=== PATIENT | male | born 1970 | race Caucasian/White ===

== ENCOUNTER 2017-05-30 02:37 | Emergency (ER) | payer SELFPAY ==
--- NOTE | 2017-05-30 04:31 | ED NURSING NOTES ---
Clinical Report - Nurses [facility] [address] [place] [address] 05/30/2017 2:41 Patient: HAILEY BOYER JR TRIAGE Triage time 02:40. Acuity: LEVEL 3. Chief Complaint: DIZZINESS and "FELT STRANGE" and TROUBLE CONCENTRATING (change in speech). Alert. No acute distress. GALLO COMA SCORE: Gallo Coma Scale: 15- eyes open spontaneously (4); best verbal response- oriented x 4 (5); best motor response- obeys commands (6). --02:52 Chandrika Ly R.N. 02:42 05/30/17. BP: 132/88. HR: 79. RR: 15. O2 saturation: 94% on room air. Temp: 97.5 F. Pain level now: 03/01. --02:52 Chandrika Ly R.N. Weight: 79.3 kg stated. Height/Length: 71 inches Per Patient. BMI: 24.4. --02:51 Chandrika Ly R.N. Medications None. --05:29 Chandrika Ly R.N. Allergies None. --05:29 Chandrika Ly R.N. History Arrived by private vehicle. Historian: patient. Accompanied by spouse. Primary physician (No PCP). This started seven weeks. ( Patient states "this has been going on for about seven weeks, but for the past few days I havent been able to sleep because I feel like I'm going to black out". Patient reports that he feels like he cant remember words as quickly as he usually did. Patient states "I have these bumps in the back of my neck that cause pain"). He has had vomiting. ( neck pain). PAST MEDICAL HX: Immunizations: up-to-date. SOCIAL HX: Heavy tobacco smoker- 1 pack per day. History of heavy drug use: marijuana. No alcohol use. FALL RISK ASSESSMENT: Fall risk assessment completed. No fall risk identified. NUTRITIONAL RISK ASSESSMENT: The nutritional risk assessment revealed no deficiencies. FUNCTIONAL ASSESSMENT: Functional assessment: no impairments noted. LEARNING NEEDS ASSESSMENT: The learning needs assessment revealed no barriers. SKIN INTEGRITY ASSESSMENT: Skin integrity risk assessment completed. No skin integrity risk identified. --02:52 Chandrika Ly R.N. Interventions ID band on patient. To treatment room. --02:52 Chandrika Ly R.N. PHYSICAL ASSESSMENT 02:54 05/30/17. Ambulatory to room. GENERAL / NEURO / PSYCH: Oriented X 4. Appears in no acute distress. Alert. HEENT: No facial asymmetry noted. Pupils equal, round and reactive to light. RESPIRATORY: Breath sounds within normal limits. Respirations not labored. CVS: Capillary refill less than 2 seconds. SKIN: Skin is warm and dry. --02:54 Chandrika Ly R.N. NURSING PROGRESS NOTES 02:54 05/30/17. Two patient identifiers checked. Call light placed in reach. Side rails up x 2. Bed placed in lowest position. Brakes of bed on. --02:54 Chandrika Ly R.N. 02:55 05/30/2017 Site #1 started via IV in the left wrist with an 20g angiocath; one attempt. Blood drawn: rainbow set. Labeled in the presence of the patient and sent to the lab. Saline lock flushed with 5 mL saline. --03:10 Chandrika Ly R.N. 03:00 05/30/2017 Started bag #1 1000 mL IV Fluids IV NS (Saline); bolus of 1000 mL wide open via site #1. Allergies verified and confirmed 5 rights. IV patency established. IV site checked: no pain, redness, or swelling. IV flushed thoroughly pre- and post-medication administration. Completed per protocol. --03:11 Chandrika Ly R.N. 03:00 05/30/2017 Zofran (Ondansetron HCl) IVP 4 mg given over 1 minute(s) via site #1. Allergies verified and confirmed 5 rights. IV patency established. IV site checked: no pain, redness, or swelling. IV flushed thoroughly pre- and post-medication administration. IVP given by RN. --03:11 Chandrika Ly R.N. 03:02 05/30/2017 Morphine IVP 4 mg given over 2 minute(s) via site #1. Allergies verified, confirmed 5 rights and sedative warning given to the patient. IV patency established. IV site checked: no pain, redness, or swelling. IV flushed thoroughly pre- and post-medication administration. IVP given by RN. --03:11 Chandrika Ly R.N. 03:41. Reassessment after medication administered. He is sleeping and has had no adverse reaction. RESPIRATORY: No respiratory distress. SKIN: Skin is warm and dry. --05:26 Chandrika Ly R.N. 03:40 05/30/17. HR: 71. RR: 10. O2 saturation: 95%. --05:28 Chandrika Ly R.N. 03:40 05/30/2017 Zofran IVP Response: no adverse reaction the patient feels better. 05/30/2017 03:40 HR: 71. RR: 10. O2 saturation: 95%. --05:31 Chandrika Ly R.N. 03:40 05/30/2017 IV Fluids IV NS Response: no adverse reaction the patient feels better. 05/30/2017 03:40 HR: 71. RR: 10. O2 saturation: 95%. --05:32 Chandrika Ly R.N. 03:40 05/30/2017 Morphine IVP Response: no adverse reaction the patient feels better. 05/30/2017 03:40 HR: 71. RR: 10. O2 saturation: 95%. --05:35 Chandrika Ly R.N. 04:07 05/30/2017 IV Fluids IV NS Discontinued: bag #1 discontinued. Total amount infused: 1000 mL. IV patency established. IV site checked: no pain, redness, or swelling. IV flushed thoroughly. --05:34 Chandrika Ly R.N. DISPOSITION / DISCHARGE 04:45 05/30/17. BP: 151/92. HR: 89. RR: 10. O2 saturation: 94%. Temp: deferred. Pain level now: 0/10. --05:03 Chandrika Ly R.N. 04:47. Condition at departure: improved. No learning barriers present. Discharge instructions provided and reviewed with the patient. Reviewed warnings. Reviewed medication(s). Treatments reviewed. Reviewed referrals. Patient verbalized understanding. Written instructions provided in Cym[employer]. The patient was discharged home and accompanied by spouse. He left the Emergency Department ambulatory and via private vehicle. Spouse driving. --05:25 Chandrika Ly R.N. 04:45 05/30/2017 Site #1 removed upon discharge. Manual pressure and bandaid applied. --05:29 Chandrika Ly R.N. Locked/Released at 05/30/2017 5:35 by Chandrika Ly R.N.
--- NOTE | 2017-05-30 04:31 | ED ORDER SUMMARY ---
..... Patient: HAILEY BOYER JR OrderSheet [facility] VisitID: [id number] [place] [address] 46y, M Registration Date/Time: 05/30/2017 ORDER SHEET Weight: 79.3 kg (stated) Allergies: None GENERAL ORDERS: CT Cervical Spine wo Cont Urgent (02:05/30/2017 Odilia Villalta) (Ack 2:54 CHagjanki ER Asset Accountant) (3:10 RMarsden R.N.) CT Head wo Cont Urgent (02:05/30/2017 Odilia Villalta) (Ack 2:54 Caesar ER Asset Accountant) (3:10 RMarsden R.N.) CBC w Diff Urgent (02:05/30/2017 Odilia Villalta) (Ack 2:54 Caesar ER Asset Accountant) (Collected 3:09 RMarsden R.N.) (3:20 RMarsden R.N.) CMP Urgent (02:05/30/2017 Odilia Villalta) (Ack 2:54 Caesar ER Asset Accountant) (Collected 3:09 RMarsden R.N.) (3:20 RMarsden R.N.) UA-Culture if indicated Urgent (02:05/30/2017 Odilia Villalta) (Ack 2:54 Jose Manuelerty ER Asset Accountant) (Cancelled: Other5:30 RMarsden R.N.) Lipase Urgent (02:05/30/2017 Odilia Villalta) (Ack 2:54 Jose Manuelerty ER Asset Accountant) (Collected 3:09 RMarsden R.N.) (5:30 RMarsden R.N.) Urine Drug Screen Urgent (02:05/30/2017 Odilia Villalta) (Ack 2:54 Caesar ER Asset Accountant) (Cancelled: Other5:30 RMarsden R.N.) MEDICATION ORDERS: IV FLUIDS: Zofran IV 4 mg (NOW) (02:52 05/30/2017 Odilia Villalta) (Ack 2:54 JQuivey R.N.) (3:11 RMarsden R.N.) Morphine IV 4 mg (HIGH ALERT MEDICATION, NOW) (02: 05/30/2017 Odilia Villalta) (Ack 2:54 Donna PachecoNDo) (3:11 Ember PachecoNDo) IV NS : initial bolus 1000 mL (1000 mL/hr), then none - for X1 (NOW) (02:55 05/30/2017 Odilia Villalta) (3:11 Ember R.N.) ORDER SHEET NOTES: [Electronically signed by Chandrika Ly R.N. (05:35 05/30/2017)] [Electronically signed by Vinayak Mccormack Dr. (06:33 06/01/2017)] [Electronically locked/signed by Chandrika Ly R.N. (05:35 05/30/2017)]
--- NOTE | 2017-05-30 04:31 | ED ORDER SUMMARY ---
..... Patient: HAILEY BOYER JR OrderSheet [facility] VisitID: [id number] [place] [address] 46y, M Registration Date/Time: 05/30/2017 ORDER SHEET Weight: 79.3 kg (stated) Allergies: None GENERAL ORDERS: CT Cervical Spine wo Cont Urgent (02:05/30/2017 Odilia Villalta) (Ack 2:54 CHagjanki ER Line Assembler) (3:10 RMarsden R.N.) CT Head wo Cont Urgent (02:05/30/2017 Odilia Villalta) (Ack 2:54 Caesar ER Line Assembler) (3:10 RMarsden R.N.) CBC w Diff Urgent (02:05/30/2017 Odilia Villalta) (Ack 2:54 Caesar ER Line Assembler) (Collected 3:09 RMarsden R.N.) (3:20 RMarsden R.N.) CMP Urgent (02:05/30/2017 Odilia Villalta) (Ack 2:54 Caesar ER Line Assembler) (Collected 3:09 RMarsden R.N.) (3:20 RMarsden R.N.) UA-Culture if indicated Urgent (02:05/30/2017 Odilia Villalta) (Ack 2:54 Jose Manuelerty ER Line Assembler) (Cancelled: Other5:30 RMarsden R.N.) Lipase Urgent (02:05/30/2017 Odilia Villalta) (Ack 2:54 Jose Manuelerty ER Line Assembler) (Collected 3:09 RMarsden R.N.) (5:30 RMarsden R.N.) Urine Drug Screen Urgent (02:05/30/2017 Odilia Villalta) (Ack 2:54 Caesar ER Line Assembler) (Cancelled: Other5:30 RMarsden R.N.) MEDICATION ORDERS: IV FLUIDS: Zofran IV 4 mg (NOW) (02:52 05/30/2017 Odilia Villalta) (Ack 2:54 JQuivey R.N.) (3:11 RMarsden R.N.) Morphine IV 4 mg (HIGH ALERT MEDICATION, NOW) (02: 05/30/2017 Odilia Villalta) (Ack 2:54 Donna PachecoNDo) (3:11 Ember PachecoNDo) IV NS : initial bolus 1000 mL (1000 mL/hr), then none - for X1 (NOW) (02:55 05/30/2017 Odilia Villalta) (3:11 Ember R.N.) ORDER SHEET NOTES: [Electronically signed by Chandrika Ly R.N. (05:35 05/30/2017)] [Electronically signed by Vinayak Mccormack Dr. (06:33 06/01/2017)] [Electronically locked/signed by Chandrika Ly R.N. (05:35 05/30/2017)]
--- NOTE | 2017-05-30 04:31 | ED CLINICAL REPORT ---
Clinical Report - Physicians/Mid Levels [facility] [address] [place] [address] 05/30/2017 2:41 Patient: HAILEY BOYER JR Time Seen: 0250; initial patient contact. Arrived- By private vehicle. Historian- patient. HISTORY OF PRESENT ILLNESS Chief Complaint: NECK PAIN. It is described as being severe and radiating (back of the head). The quality is noted to be ("stabbing"). Onset- over a month and it is still present and worsening. It was gradual in onset and has been constant but is not gone now. Modifying factors. (worse with movement. better with massage.). No bladder dysfunction, bowel dysfunction, sensory loss or motor loss. Additional history - No fever. States he is having n/v with the pain. Patient notes the possibility of an injury. Patient denies a recent injury. Mechanism of injury- (wrestling for fun at work). Occurred at work. Patient denies injury to the head or chest. No other injury. Similar symptoms previously: None. Recent medical care: Not recently seen/assessed. REVIEW OF SYSTEMS No fever, chills, difficulty breathing, chest pain or skin rash. No black stools or bloody stools. He has had nausea and vomiting. All systems otherwise negative, except as recorded above. PAST HISTORY See nurses notes. Medications: None. Allergies: None. SOCIAL HISTORY Smoker- current status unknown. History of drug use: marijuana. Is a recovering addict. No alcohol use. No recent travel. Is a local resident. ADDITIONAL NOTES The nursing notes have been reviewed. PHYSICAL EXAM Vital Signs: 05/30/2017 02:42 BP: 132/88. HR: 79. RR: 15. O2 saturation: 94%. Temp: 97.5 F. Pain level now: 4/10. Oxygen saturation normal. Appearance: Alert. Patient in mild distress. (nontoxic appearance. blade. Cooperative.). HEENT: Normal external inspection. Eyes: Pupils equal, round and reactive to light. ENT: Ears normal. Pharynx normal. (normal-appearing retinal vasculature. No papilledema.). Neck: Normal inspection. No meningeal signs. (Mild paraspinal muscle tenderness. No crepitus. No midline tenderness. No step-offs. No bony abnormalities.). CVS: Normal heart rate and rhythm. Heart sounds normal. Pulses normal. Respiratory: No respiratory distress. Breath sounds normal. Chest nontender. No rales, rhonchi or wheezes. Abdomen: Normal inspection. Soft and nontender. Bowel sounds normal. Back: Normal inspection. No tenderness. Painless ROM. No vertebral point tenderness. Skin: Skin warm and dry. Normal skin color. No rash. Normal skin turgor. Extremities: Extremities exhibit normal ROM. Extremities nontender. Neuro: Oriented X 3. Mood/affect normal. No motor deficit. No sensory deficit. LABS, X-RAYS, AND EKG CT C-Spine: (PROCEDURE: CT CERVICAL SPINE W/O CONTRAST INDICATION: PAIN TECHNIQUE: Noncontrast axial images with sagittal and coronal reformations. Report provided by Angelina Thomas MD ([facility]). COMPARISON: None. FINDINGS: There is straightening of cervical lordosis. C1-2: Mild degenerative changes. C2-3: Normal appearance. C3-4: Normal appearance. C4-5: Normal appearance. C5-6: Moderately chronically bulging disc with lateral osteophytes results in mild narrowing of the central canal with mild to moderate narrowing of the neural foramina. C6-7: Moderately chronically bulging disc with lateral osteophytes results in mild narrowing of central canal and moderate narrowing of the neural foramina. C7-T1: Normal appearance. No evidence of acute process or fracture. There are mild emphysematous changes of the upper lungs. IMPRESSION: 1. Mild to moderate degenerative changes of the lower cervical spine. 2. Straightening of the cervical lordosis compatible spasm or degenerative changes. 3. Mild emphysematous changes of the upper lungs. 4. No evidence of acute process.). The study was independently viewed by me and interpreted by the radiologist. The study was discussed with the radiologist (via pacs and phone). CT Head: (PROCEDURE: CT HEAD WITHOUT CONTRAST INDICATION: Dizziness. Headache. TECHNIQUE: Noncontrast axial images with sagittal and coronal reformations. Preliminary report provided by Angelina Thomas MD ([facility]). COMPARISON: None. FINDINGS: Brain and ventricles are normal. No evidence of an acute process or hemorrhage. Sinuses and mastoids are normal. IMPRESSION: 1. Negative head CT.). The study was independently viewed by me and interpreted by the radiologist. The study was discussed with the radiologist (via pacs and phone). Laboratory Tests: CBC w Diff: (STACEY: 05/30/2017 02:50) ( WygRcvd 05/30/2017 03:02) Final results Test Result Flag Units (Reference) WHITE BLOOD COUNT 13.0 H K/uL (4.5-11.5) RED BLOOD COUNT 4.83 M/uL (4.50-5.90) HEMOGLOBIN 14.4 gm/dL (13.5-17.5) HEMATOCRIT 42.9 % (41.0-53.0) MEAN CELL VOLUME 89 fL (80-100) MEAN CORPUSCULAR HGB 30 pg (26-34) MEAN CORPUSCULAR HGB CONC 34 g/dL (31-37) RED CELL DISTRIBUTION WIDTH 13.3 % (11.6-14.8) PLATELET COUNT 344 K/uL (150-400) NEUTROPHIL % 81.7 H % (50-75) LYMPH % 11.4 L % (25-40) MONO % 4.9 % (3-14) EOSINOPHIL % 1.5 % (0-4) BASOPHIL % 0.5 % (0-2) CMP: (STACEY: 05/30/2017 02:50) ( WygRcvd 05/30/2017 03:14) Final results Test Result Flag Units (Reference) GLUCOSE 98 mg/dL (70-110) BUN 14 mg/dL (7-18) CREATININE 0.9 mg/dL (0.6-1.3) Estimated GFR >60 mL/min Estimated GFR- >60 mL/min Note: Persistent reduction over 3 months in eGFR<60 mL/min/1.73 m2 defines CKD. Patients with eGFR values>=60 mL/min/1.73 m2 may also have CKD if evidence ofpersistent proteinuria. Additional information may be foundat www.kidney.org. SODIUM 142 mmol/L (136-145) POTASSIUM 3.8 mmol/L (3.5-5.1) CHLORIDE 102 mmol/L (98-107) CARBON DIOXIDE 29 mmol/L (21-32) CALCIUM 9.5 mg/dL (8.5-10.1) TOTAL PROTEIN 7.6 g/dL (6.4-8.2) ALBUMIN 4.4 g/dL (3.3-5.0) BILIRUBIN, TOTAL 0.5 mg/dL (0.0-1.0) ALKALINE PHOSPHATASE 66 U/L (46-116) AST (SGOT) 21 U/L (15-37) ALT (SGPT) 22 U/L (12-78) LIPASE 97 U/L (73-393) . PROGRESS AND PROCEDURES Course of Care: The patient is a 46-year-old male presenting for evaluation of headache and mental status changes. Symptoms have been ongoing for the past month. No concern at this time for acute CVA. Patient is otherwise outside of the window. Would be concerned for atypical migraine presentation versus atypical headache presentation versus tension headache. No signs of meningitis at this time. Patient does have nausea and vomiting associated with his headache and neck pain. Concern for space-occupying lesion. CT scan of the head and neck up and ordered for evaluation of the patient's discomfort. No signs of increased intracranial pressure on examination. Patient is agreeable to the treatment plan. The patient's workup was remarkable for the findings above. No acute findings noted on patient's CT scan of the head. Patient with degenerative disc disease noted on those findings. Had a discussion with the patient in regards to his workup here in the emergency department. No acute findings also noted on patient's laboratory studies. Discussed with patient his diagnosis here in the emergency department including home care, follow-up, and return precautions. All questions have been answered. The patient expressed understanding of these instructions and was agreeable to them. Patient's repeat examination is significantly improved. Patient continues to be neurovascularly intact. Disposition: Discharged. Condition: good. CLINICAL IMPRESSION Acute neck pain associated with cervical strain and DJD of the lower cervical spine. 05/30/2017 02:42 BP: 132/88. HR: 79. RR: 15. O2 saturation: 94%. Temp: 97.5 F. Pain level now: 4/10. Moderate nausea with vomiting (acute). Acute headache. Oxygen saturation normal. INSTRUCTIONS Warnings: SEDATIVE MEDICATION: You were given sedative medication during your visit. Do not drive or operate dangerous machinery. CONTROLLED SUBSTANCE WARNINGS. GENERAL WARNINGS: Return or contact your physician immediately if your condition worsens or changes unexpectedly, if not improving as expected, or if other problems arise. SPECIFICALLY, return if you develop weakness, numbness, tingling, pain or incontinence. fever or other concerns. Prescription Medications: Flexeril 10 mg: take 1 orally every 8 hours as needed for muscle spasm or pain. Dispense twenty (20). No refills. Substitution is permissible. Percocet 5 mg/325 mg: take 1 tablet orally every 6 hours as needed for pain. Dispense twelve (12). No refill. Substitution is permissible. Follow-up: Return to the emergency department as needed. Follow up with your doctor in three days. Reason for referral: recheck today's concerns. Summary of care provided to patient via paper. Screening today revealed the patient's blood pressure to be in the normal range. The patient should follow up with a primary care provider for blood pressure management. Understanding of the discharge instructions verbalized by patient. (Electronically signed by Vinayak Mccormack Dr. 06/01/2017 6:33)
--- NOTE | 2017-05-30 06:48 | DIAGNOSTIC IMAGING REPORT ---
PROCEDURE: CT CERVICAL SPINE W/O CONTRAST INDICATION: PAIN TECHNIQUE: Noncontrast axial images with sagittal and coronal reformations. Report provided by Angelina Thomas MD ([facility]). COMPARISON: None. FINDINGS: There is straightening of cervical lordosis. C1-2: Mild degenerative changes. C2-3: Normal appearance. C3-4: Normal appearance. C4-5: Normal appearance. C5-6: Moderately chronically bulging disc with lateral osteophytes results in mild narrowing of the central canal with mild to moderate narrowing of the neural foramina. C6-7: Moderately chronically bulging disc with lateral osteophytes results in mild narrowing of central canal and moderate narrowing of the neural foramina. C7-T1: Normal appearance. No evidence of acute process or fracture. There are mild emphysematous changes of the upper lungs. IMPRESSION: 1. Mild to moderate degenerative changes of the lower cervical spine. 2. Straightening of the cervical lordosis compatible spasm or degenerative changes. 3. Mild emphysematous changes of the upper lungs. 4. No evidence of acute process. All CT scans at this facility use dose modulation, iterative reconstruction, and/or weight-based dosing when appropriate to reduce radiation dose to as low as reasonably achievable.
--- NOTE | 2017-05-30 06:51 | DIAGNOSTIC IMAGING REPORT ---
PROCEDURE: CT HEAD WITHOUT CONTRAST INDICATION: Dizziness. Headache. TECHNIQUE: Noncontrast axial images with sagittal and coronal reformations. Preliminary report provided by Angelina Thomas MD (). COMPARISON: None. FINDINGS: Brain and ventricles are normal. No evidence of an acute process or hemorrhage. Sinuses and mastoids are normal. IMPRESSION: 1. Negative head CT. 2. Preliminary report provided to Dr. Vinayak Mccormack ([address] scans at this facility use dose modulation, iterative reconstruction, and/or weight-based dosing when appropriate to reduce radiation dose to as low as reasonably achievable.
--- NOTE | 2017-06-01 06:33 | ED DISCHARGE INSTRUCTIONS ---
Patient: HAILEY BOYER JR General Instructions [facility] VisitID: [id number] [place] [address] 46y, M Registration Date/Time: 05/30/2017 Acute neck pain associated with cervical strain and DJD of the lower cervical spine. 05/30/2017 02:42 BP: 132/88. HR: 79. RR: 15. O2 saturation: 94%. Temp: 97.5 F. Pain level now: 410. Moderate nausea with vomiting (acute). Acute headache. Oxygen saturation normal. INSTRUCTIONS Warnings: SEDATIVE MEDICATION: You were given sedative medication during your visit. Do not drive or operate dangerous machinery. CONTROLLED SUBSTANCE WARNINGS. GENERAL WARNINGS: Return or contact your physician immediately if your condition worsens or changes unexpectedly, if not improving as expected, or if other problems arise. SPECIFICALLY, return if you develop weakness, numbness, tingling, pain or incontinence. fever or other concerns. Prescription Medications: Flexeril 10 mg: take 1 orally every 8 hours as needed for muscle spasm or pain. Dispense twenty (20). No refills. Substitution is permissible. Percocet 5 mg/325 mg: take 1 tablet orally every 6 hours as needed for pain. Dispense twelve (12). No refill. Substitution is permissible. Follow-up: Return to the emergency department as needed. Follow up with your doctor in three days. Reason for referral: recheck today's concerns. Summary of care provided to patient via paper. Screening today revealed the patient's blood pressure to be in the normal range. The patient should follow up with a primary care provider for blood pressure management. Understanding of the discharge instructions verbalized by patient. ADDITIONAL INFORMATION Neck Sprain Or Strain A sudden force that causes turning or bending of the neck (such as in a car accident) can stretch or tear muscles (strain) and ligaments (sprain) and cause neck pain. Sometimes neck pain occurs after a simple awkward movement. In either case, muscle spasm is commonly present and contributes to the pain. Unless you had a forceful physical injury (for example, a car accident or fall), X-rays are usually not ordered for the initial evaluation of neck pain. If pain continues and dose not respond to medical treatment, X-rays and other tests may be performed at a later time. Home care The following guidelines will help you care for your injury at home: You may feel more soreness and spasm the first few days after the injury. Reduce your activity level until symptoms begin to improve. When lying down, use a comfortable pillow that supports the head and keeps the spine in a neutral position. The position of the head should not be tilted forward or backward. Use ice packs (ice in a plastic bag, wrapped in a towel) to treat acute pain. Apply for 20 minutes every 24 hours during the first two days. Then, begin local heat (hot shower, hot bath or heating pad) andmassageto reduce muscle spasm. Some patients feel best alternating hot and cold treatments, or just staying with one method only. Do what feels the best to you and gives the most relief. You may use acetaminophen or ibuprofen to control pain, unless another pain medicine was prescribed.If you have chronic liver or kidney disease or ever had a stomach ulcer or GI bleeding, talk with your doctor before using these medicines. Follow-up care Follow up with your physician or this facility if your symptoms do not show signs of improvement. Physical therapy may be needed. If you had X-rays today, they didnt show any broken bones, breaks, or fractures. Sometimes fractures dont show up on the first X-ray. Bruises and sprains can sometimes hurt as much as a fracture. These injuries can take time to heal completely. If your symptoms dont improve or they get worse, talk with your doctor. You may need a repeat X-ray. When to seek medical care Get prompt medical attention if any of the following occur: Pain becomes worse or spreads into your arms Weakness or numbness in one or both arms Headache [Unspecified] The cause of your headache today is not clear, but it does not appear to be the sign of any serious illness. Under stress, some people tense the muscles of their shoulder, neck and scalp without knowing it. If this condition lasts long enough, a TENSION HEADACHE can occur. A MIGRAINE HEADACHE is caused by changes in blood flow to the brain. A migraine attack may be triggered by emotional stress, hormone changes during the menstrual cycle, oral contraceptives, alcohol use, certain foods containing tyramine, eye strain, weather changes, missing meals, lack of sleep or oversleeping. Other causes of headache include a viral illness with high fever, head injury with concussion, sinus, ear or throat infection, dental pain and TMJ (jaw joint) pain. More serious but less common causes of headache include stroke, brain hemorrhage, brain tumor, meningitis and encephalitis. Home Care: If you were given pain medicine for this headache, do not drive yourself home. Arrange for a ride, instead. When you get home, try to sleep. You should feel much better when you wake up. Apply heat to the back of your neck to relieve neck muscle spasm. Migraine headaches may respond best to an ice pack on the forehead or at the base of the skull. If you are having nausea or vomiting, follow a light diet until your headache is relieved. If you have a migraine type headache, use sunglasses when in the daylight or around bright indoor lighting until symptoms improve. Bright glaring light can worsen this kind of headache. Follow Up with your doctor if the headache is not better within the next 24 hours. If you have frequent headaches you should discuss a treatment plan with your primary care doctor. By being aware of the earliest signs of headache, and starting treatment right away, you may be able to stop the pain yourself. Get Prompt Medical Attention if any of the following occur: Worsening of your head pain or no improvement within 24 hours Repeated vomiting (unable to keep liquids down) Fever of 100.4F (38C) or higher, or as directed by your healthcare provider Stiff neck Extreme drowsiness, confusion or fainting Dizziness, vertigo (dizziness with spinning sensation) Weakness of an arm or leg or one side of the face Difficulty with speech or vision Cyclobenzaprine Hydrochloride Oral tablet What is this medicine? CYCLOBENZAPRINE (rosalind mcgraw) is a muscle relaxer. It is used to treat muscle pain, spasms, and stiffness. How should I use this medicine? Take this medicine by mouth with a glass of water. Follow the directions on the prescription label. If this medicine upsets your stomach, take it with food or milk. Take your medicine at regular intervals. Do not take it more often than directed. Talk to your building insulation installer regarding the use of this medicine in children. Special care may be needed. What side effects may I notice from receiving this medicine? Side effects that you should report to your doctor or health career services assistant as soon as possible: allergic reactions like skin rash, itching or hives, swelling of the face, lips, or tongue chest pain fast heartbeat hallucinations seizures vomiting Side effects that usually do not require medical attention (report to your doctor or health career services assistant if they continue or are bothersome): headache What may interact with this medicine? Do not take this medicine with any of the following medications: cisapride droperidol flecainide grepafloxacin halofantrine levomethadyl MAOIs like Carbex, Eldepryl, Marplan, Nardil, and Parnate nilotinib pimozide probucol sertindole This medicine may also interact with the following medications: abarelix alcohol contrast dyes dolasetron guanethidine medicines for cancer medicines for depression, anxiety, or psychotic disturbances medicines to treat an irregular heartbeat medicines used for sleep or numbness during surgery or procedure methadone octreotide ondansetron palonosetron phenothiazines like chlorpromazine, mesoridazine, prochlorperazine, thioridazine some medicines for infection like alfuzosin, chloroquine, clarithromycin, levofloxacin, mefloquine, pentamidine, troleandomycin tramadol vardenafil What if I miss a dose? If you miss a dose, take it as soon as you can. If it is almost time for your next dose, take only that dose. Do not take double or extra doses. Where should I keep my medicine? Keep out of the reach of children. Store at room temperature between 15 and 30 degrees C (59 and 86 degrees F). Keep container tightly closed. Throw away any unused medicine after the expiration date. What should I tell my health care provider before I take this medicine? They need to know if you have any of these conditions: heart disease, irregular heartbeat, or previous heart attack liver disease thyroid problem an unusual or allergic reaction to cyclobenzaprine, tricyclic antidepressants, lactose, other medicines, foods, dyes, or preservatives or trying to get breast-feeding What should I watch for while using this medicine? Check with your doctor or health career services assistant if your condition does not improve within 1 to 3 weeks. You may get drowsy or dizzy when you first start taking the medicine or change doses. Do not drive, use machinery, or do anything that may be dangerous until you know how the medicine affects you. Stand or sit up slowly. Your mouth may get dry. Drinking water, chewing sugarless gum, or sucking on hard candy may help. Oxycodone Hydrochloride, Acetaminophen Oral tablet What is this medicine? ACETAMINOPHEN; OXYCODONE (a set a GRAYSON fortino fen; ox joan FORD done) is a pain reliever. It is used to treat mild to moderate pain. How should I use this medicine? Take this medicine by mouth with a full glass of water. Follow the directions on the prescription label. Take your medicine at regular intervals. Do not take your medicine more often than directed. Talk to your building insulation installer regarding the use of this medicine in children. Special care may be needed. Patients over 65 years old may have a stronger reaction and need a smaller dose. What side effects may I notice from receiving this medicine? Side effects that you should report to your doctor or health career services assistant as soon as possible: allergic reactions like skin rash, itching or hives, swelling of the face, lips, or tongue breathing difficulties, wheezing confusion light headedness or fainting spells severe stomach pain yellowing of the skin or the whites of the eyes Side effects that usually do not require medical attention (report to your doctor or health career services assistant if they continue or are bothersome): dizziness drowsiness nausea vomiting What may interact with this medicine? alcohol antihistamines barbiturates like amobarbital, butalbital, butabarbital, methohexital, pentobarbital, phenobarbital, thiopental, and secobarbital benztropine drugs for bladder problems like solifenacin, trospium, oxybutynin, tolterodine, hyoscyamine, and methscopolamine drugs for breathing problems like ipratropium and tiotropium drugs for certain stomach or intestine problems like propantheline, homatropine methylbromide, glycopyrrolate, atropine, belladonna, and dicyclomine general anesthetics like etomidate, ketamine, nitrous oxide, propofol, desflurane, enflurane, halothane, isoflurane, and sevoflurane medicines for depression, anxiety, or psychotic disturbances medicines for sleep muscle relaxants naltrexone narcotic medicines (opiates) for pain phenothiazines like perphenazine, thioridazine, chlorpromazine, mesoridazine, fluphenazine, prochlorperazine, promazine, and trifluoperazine scopolamine tramadol trihexyphenidyl What if I miss a dose? If you miss a dose, take it as soon as you can. If it is almost time for your next dose, take only that dose. Do not take double or extra doses. Where should I keep my medicine? Keep out of the reach of children. This medicine can be abused. Keep your medicine in a safe place to protect it from theft. Do not share this medicine with anyone. Selling or giving away this medicine is dangerous and against the law. Store at room temperature between 20 and 25 degrees C (68 and 77 degrees F). Keep container tightly closed. Protect from light. This medicine may cause accidental overdose and if it is taken by other adults, children, or pets. Flush any unused medicine down the toilet to reduce the chance of harm. Do not use the medicine after the expiration date. What should I tell my health care provider before I take this medicine? They need to know if you have any of these conditions: brain tumor Crohn's disease, inflammatory bowel disease, or ulcerative colitis drink more than 3 alcohol containing drinks per day drug abuse or addiction head injury heart or circulation problems kidney disease or problems going to the bathroom liver disease lung disease, asthma, or breathing problems an unusual or allergic reaction to acetaminophen, oxycodone, other opioid analgesics, other medicines, foods, dyes, or preservatives or trying to get breast-feeding What should I watch for while using this medicine? Tell your doctor or health career services assistant if your pain does not go away, if it gets worse, or if you have new or a different type of pain. You may develop tolerance to the medicine. Tolerance means that you will need a higher dose of the medication for pain relief. Tolerance is normal and is expected if you take this medicine for a long time. Do not suddenly stop taking your medicine because you may develop a severe reaction. Your body becomes used to the medicine. This does NOT mean you are addicted. Addiction is a behavior related to getting and using a drug for a non-medical reason. If you have pain, you have a medical reason to take pain medicine. Your doctor will tell you how much medicine to take. If your doctor wants you to stop the medicine, the dose will be slowly lowered over time to avoid any side effects. You may get drowsy or dizzy. Do not drive, use machinery, or do anything that needs mental alertness until you know how this medicine affects you. Do not stand or sit up quickly, especially if you are an older patient. This reduces the risk of dizzy or fainting spells. Alcohol may interfere with the effect of this medicine. Avoid alcoholic drinks. There are different types of narcotic medicines (opiates) for pain. If you take more than one type at the same time, you may have more side effects. Give your health care provider a list of all medicines you use. Your doctor will tell you how much medicine to take. Do not take more medicine than directed. Call emergency for help if you have problems breathing. The medicine will cause constipation. Try to have a bowel movement at least every 2 to 3 days. If you do not have a bowel movement for 3 days, call your doctor or health career services assistant. Do not take Tylenol (acetaminophen) or medicines that have acetaminophen with this medicine. Too much acetaminophen can be very dangerous. Many nonprescription medicines contain acetaminophen. Always read the labels carefully to avoid taking more acetaminophen. You have been given the following additional information: Neck Sprain/Strain Headache, Unspecified Cyclobenzaprine Hydrochloride Oral tablet Oxycodone Hydrochloride, Acetaminophen Oral tablet (Electronically signed by Vinayak Mccormack Dr. 06/01/2017 6:33)
--- NOTE | 2017-06-01 06:33 | ED MAR SUMMARY ---
..... Medication Administration Record [facility] [address] [place] [address] Patient: HAILEY BOYER V Visit ID: [id number] 46y, M Weight: 79.3 kg Height/Length: 71 in BMI: 24.4 ALLERGIES: None Given 03:00 05/30/2017 Chandrika Ly R.N. Medication Administered: ZOFRAN [IVP] (ONDANSETRON HCL), Dose: 4 mg IVP over 1 minute(s), Site: #1 left wrist. Medication Ordered: Zofran IV 4 mg (NOW). Start 03:00 05/30/2017 Chandrika Ly R.N., Stop 04:07 05/30/2017 Chandrika Ly R.N. Medication Administered: IV NS (SALINE), Dose: IV Fluids, Bolus: 1000 mL wide open, Dispensed: 1000 mL bag, Site: #1 left wrist. Medication Ordered: IV NS : initial bolus 1000 mL (1000 mL/hr), then none - for X1 (NOW). Given 03:02 05/30/2017 Chandrika Ly R.N. Medication Administered: MORPHINE [IVP], Dose: 4 mg IVP over 2 minute(s), Site: #1 left wrist. Medication Ordered: Morphine IV 4 mg (HIGH ALERT MEDICATION, NOW).
--- NOTE | 2017-06-01 06:33 | ED MED RECONCILIATION SUMMARY ---
Patient: HAILEY BOYER JR Medication Reconciliation Report [facility] VisitID: [id number] [address] [place] [address] 46y, M Registration Date/Time: 05/30/2017 Weight: 79.3 kg Height/Length: 71 in. BMI: 24.4 ALLERGIES: None The patient's Home Medications are listed below: NONE. The source(s) of the original Home Medication information: Not obtained. The following Medications were given to the patient in the Emergency Department: IV NS IV Fluids bolus 1000 mL wide open, administered: 05/30/2017 3:00:00 AM Morphine [IVP] IVP 4 mg, administered: 05/30/2017 3:02:00 AM Zofran [IVP] IVP 4 mg, administered: 05/30/2017 3:00:00 AM The following Medications were prescribed to the patient: Flexeril 10 mg: take 1 orally every 8 hours as needed for muscle spasm or pain. Dispense twenty (20). No refills. Substitution is permissible. -- Vinayak Mccormack Dr. Percocet 5 mg/325 mg: take 1 tablet orally every 6 hours as needed for pain. Dispense twelve (12). No refill. Substitution is permissible. -- Vinayak Mccormack Dr.
--- NOTE | 2017-06-01 06:33 | ED MED RECONCILIATION SUMMARY ---
Patient: HAILEY BOYER JR Medication Reconciliation Report [facility] VisitID: [id number] [address] [place] [address] 46y, M Registration Date/Time: 05/30/2017 Weight: 79.3 kg Height/Length: 71 in. BMI: 24.4 ALLERGIES: None The patient's Home Medications are listed below: NONE. The source(s) of the original Home Medication information: Not obtained. The following Medications were given to the patient in the Emergency Department: IV NS IV Fluids bolus 1000 mL wide open, administered: 05/30/2017 3:00:00 AM Morphine [IVP] IVP 4 mg, administered: 05/30/2017 3:02:00 AM Zofran [IVP] IVP 4 mg, administered: 05/30/2017 3:00:00 AM The following Medications were prescribed to the patient: Flexeril 10 mg: take 1 orally every 8 hours as needed for muscle spasm or pain. Dispense twenty (20). No refills. Substitution is permissible. -- Vinayak Mccormack Dr. Percocet 5 mg/325 mg: take 1 tablet orally every 6 hours as needed for pain. Dispense twelve (12). No refill. Substitution is permissible. -- Vinayak Mccormack Dr.
--- NOTE | 2017-06-01 06:33 | ED MAR SUMMARY ---
..... Medication Administration Record [facility] [address] [place] [address] Patient: HAILEY BOYER V Visit ID: [id number] 46y, M Weight: 79.3 kg Height/Length: 71 in BMI: 24.4 ALLERGIES: None Given 03:00 05/30/2017 Chandrika Ly R.N. Medication Administered: ZOFRAN [IVP] (ONDANSETRON HCL), Dose: 4 mg IVP over 1 minute(s), Site: #1 left wrist. Medication Ordered: Zofran IV 4 mg (NOW). Start 03:00 05/30/2017 Chandrika Ly R.N., Stop 04:07 05/30/2017 Chandrika Ly R.N. Medication Administered: IV NS (SALINE), Dose: IV Fluids, Bolus: 1000 mL wide open, Dispensed: 1000 mL bag, Site: #1 left wrist. Medication Ordered: IV NS : initial bolus 1000 mL (1000 mL/hr), then none - for X1 (NOW). Given 03:02 05/30/2017 Chandrika Ly R.N. Medication Administered: MORPHINE [IVP], Dose: 4 mg IVP over 2 minute(s), Site: #1 left wrist. Medication Ordered: Morphine IV 4 mg (HIGH ALERT MEDICATION, NOW).
== END 2017-05-30 04:47 | disposition home or self-care (01) ==
LOC: ED SRH 02:37
DX: S16.1XXA Strain of muscle, fascia and tendon at neck level, initial encounter (principal); M50.30 Other cervical disc degeneration, unspecified cervical region; R11.2 Nausea with vomiting, unspecified; R51 Headache; Y93.83 Activity, rough housing and horseplay; Y99.8 Other external cause status; Y92.89 Other specified places as the place of occurrence of the external cause
CPT/HCPCS: 90100; 92235; 95059